=== PATIENT | male | born 1945 | race Caucasian/White ===

== ENCOUNTER → 2018-07-08 | Outpatient (CLI) | payer MEDICARE, OTHER ==
--- NOTE | 2018-07-08 12:12 | PCVCIMAG ---
APPROVED REPORT Study performed: 07/08/2018 11:08:39 Exam: Stress Echocardiogram Indication: Dyspnea, Near syncope, hx carotid endarterectomy Patient Location: Echo lab Stress Nurse: Vicky Sanchez RN Status: routine Ht: 5 ft 6 in HR: 78 bpm BP: 162/82 mmHg Rhythm: NSR Procedure The patient underwent an Exercise Stress Test using the Vern Protocol. Blood pressure, heart rate, and EKG were monitored. An Echocardiogram was performed by nuclear fuel enrichment technician in four stages in quad fashion. At peak stress, four selected images were obtained and placed side by side with resting images for comparison. Stress Test Details Stress Test: Exercise stress testing was performed using a Vern protocol. HR Resting HR: 78 bpmMax Heart Rate (APMHR): 149 bpm Max HR Achieved: 151 bpmTarget HR (85% APMHR): 126 bpm % of APMHR: 101 Recovery HR: 101 bpm HR response to stress: Normal HR response to stress BP Resting BP: 162/82 mmHg Max BP: 182/88 mmHg Recovery BP: 160/78 mmHg BP response to stress: Normal blood pressure response to stress. ECG Resting ECG: Sinus Rhythm Stress ECG: Sinus Rhythm ST Change: Normal Maximum ST Deviation: 0 mm Arrhythmia: occasional PVCs Recovery ECG: Sinus Rhythm Recovery ST Change: Normal Recovery ST Deviation: 0 mm Recovery Arrhythmia: None Clinical Reason for Termination: Maximal effort Stress Symptoms: Dyspnea Exercise duration: 7 min sec Highest Stage Achieved: Stage 3: 3.4 mph at 14% grade. Exercise capacity: 10.1 METs Overall Exercise Capacity for Age: Normal Scale: Sedentary Angina Score: None Stress ECG Conclusion Clinical: Non-ischemic ECG: Non-ischemic Sawyer Treadmill Score is 7.0 which is Low risk. Pre-Stress Echo The resting Echocardiogram showed normal left ventricular contractility with an estimated Ejection Fraction of about >55%. Normal wall motion in all segments on baseline images. Post-Stress Echo The stress Echocardiogram showed normal left ventricular contractility with an estimated Ejection Fraction of about 65%. Normal augmentation of wall motion in all segments on post stress images. Clinical No clinical or ECG evidence for ischemia. Conclusion Clinical Response: Non-ischemic Exercise Capacity: Average Stress ECG Response: Non-ischemic Stress Echo Images: Non-ischemic The left ventricle is normal in size and wall thickness in both the rest and stress images. Normal stress echocardiogram with maximal exercise stress. Other Information Study Quality: Adequate <Conclusion> The left ventricle is normal in size and wall thickness in both the rest and stress images. Normal stress echocardiogram with maximal exercise stress.
== END | disposition home or self-care (01) ==
LOC: EDBD 10:59 → PCVCIMAG 10:59
PROVIDERS: ATTEND Family Medicine
DX: R06.00 Dyspnea, unspecified (principal); R55 Syncope and collapse
CPT/HCPCS: 93325; 93351